=== PATIENT | male | born 1980 | race Caucasian/White ===

== ENCOUNTER 2018-07-17 20:54 | Inpatient (IN) | payer OTHER ==
[~2018-07-17] VITALS: Ht 175.3 cm; Wt 108.9 kg
[2018-07-17] MEDS ORDERED: LIDOCAINE 2%/EPI 1:100,000 20 ML VIAL. IJ ONE (21:15)
[2018-07-17] MEDS ORDERED: MORPHINE SULFATE 10 MG/ML VIAL. IV ONE (21:15)
[2018-07-17] MEDS ORDERED: NEOMY/BACITR/POLYMYXIN OINT PACKET. TP ONE (21:15)
[2018-07-17 21:23] LABS: BASO # 0.1 x10^3/uL (0.0-0.2); BASO % 0 % (0-3); EOS # 0.1 x10^3/uL (0.0-0.7); EOS % 1 % (0-3); HEMATOCRIT 43.2 % (39.0-53.0); HEMOGLOBIN 14.6 g/dL (13.0-17.5); LYMPH % 14 % (24-48); MEAN CORPUSCULAR HEMOGLOBIN 31 pg (25-35); MEAN CORPUSCULAR HGB CONC 34 g/dL (31-37); MEAN CORPUSCULAR VOLUME 91 fL (79-100); MONO # 1.1 x10^3/uL (0.0-1.1); MONO % 8 % (0-9); NEUT # 11.6 x10^3uL (1.8-7.7); NEUT % 78 % (31-73); PLATELET COUNT 263 x10^3/uL (140-400); RED BLOOD COUNT 4.74 x10^6/uL (4.30-5.70); RED CELL DISTRIBUTION WIDTH 14.3 % (11.5-14.5); WHITE BLOOD COUNT 14.9 x10^3/uL (4.0-11.0)
[2018-07-17 21:30] LABS: CREATININE 0.8 mg/dL (0.7-1.3); GFR 109.4; POTASSIUM 3.8 mmol/L (3.5-5.1)
[2018-07-17] MEDS ORDERED: TETRACAINE 0.5% OPHTH SOLUTION 4ML BOTTLE. OD ONE (21:30)
[2018-07-17 21:33] LABS: PROTHROMBIN TIME PATIENT 12.9 SEC (11.7-14.0)
[2018-07-17 21:36] LABS: ALBUMIN 4.1 g/dL (3.4-5.0); ALBUMIN/GLOBULIN RATIO 1.3 (1.0-1.7); TOTAL BILIRUBIN 1.5 mg/dL (0.2-1.0); TOTAL PROTEIN 7.2 g/dL (6.4-8.2)
[2018-07-17] MEDS ORDERED: HYDROmorphone 2 MG/ML VIAL IV ONE ×2 (22:00→22:15)
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
[2018-07-17] MEDS ORDERED: AMOXICILLIN/K CLAV 875/125MG TABLET. PO ONE (22:45)
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
[2018-07-17] MEDS ORDERED: ONDANSETRON PF 4 MG/2 ML VIAL. IV PRN (23:00)
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
[2018-07-18] MEDS ORDERED: HYDR8TAB29 PO (01:18)
[2018-07-18] MEDS ORDERED: NAPR500T8 PO (01:18)
[2018-07-18] MEDS: HYDROmorphone 2 MG/ML VIAL IVP PRN ×2 (01:37→05:42)
[2018-07-18 03:00] VITALS: BP 132/86
[2018-07-18 07:00] VITALS: BP 147/76
[2018-07-18 07:05] LABS: BILIRUBIN,URINE NEGATIVE (NEG); CLARITY,URINE CLEAR; COLOR,URINE YELLOW; NITRITE,URINE NEGATIVE (NEG); PROTEIN,URINE NEGATIVE (NEG-TRACE); UROBILINOGEN,URINE 0.2 mg/dL (0.2 mg/dL)
[2018-07-18 07:09] LABS: HYALINE CASTS, URINE FEW /HPF
[2018-07-18 07:11] LABS: BACTERIA,URINE 0 /HPF (0-FEW); BARBITURATES NEG (NEG); BENZODIAZEPINES POS (NEG); CANNABINOIDS NEG (NEG); COCAINE NEG (NEG); METHADONE NEG (NEG); OPIATES POS (NEG); PHENCYCLIDINE NEG (NEG); RBC,URINE 0 /HPF (0-2); WBC,URINE RARE /HPF (0-4)
[2018-07-18 07:17] LABS: AMPHETAMINE/METHAMPHETAMINE NEG (NEG)
[2018-07-18] MEDS ORDERED: POLYETHYLENE GLYCOL 3350 17 GM PACKET. PO PRN (08:00)
[2018-07-18] MEDS ORDERED: MAGNESIUM HYDROXIDE 2,400 MG/30 ML ORAL.SUSP. PO PRN (08:00)
[2018-07-18] MEDS ORDERED: ONDANSETRON PF 4 MG/2 ML VIAL. IV PRN (08:00)
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
[2018-07-18] MEDS: CELECOXIB 100 MG CAPSULE. PO SCH ×2 (08:43→20:07)
[2018-07-18] MEDS: DOCUSATE SODIUM 100 MG CAPSULE. PO SCH (08:43)
[2018-07-18] MEDS: AMOXICILLIN/K CLAV 500/125MG TABLET. PO SCH ×2 (08:43→20:07)
[2018-07-18] MEDS: oxyCODONE/APAP 5/325 1 TAB TABLET PO PRN ×2 (08:44→12:32)
[2018-07-18] MEDS: HYDROmorphone 4 MG TABLET PO SCH ×3 (09:36→20:07)
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
[2018-07-18 11:00] VITALS: BP 127/82
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
[2018-07-18 14:39] VITALS: BP 149/84
--- NOTE | 2018-07-18 16:30 | NUR ---
Assumed patient care at 1600, agree with prior nursing assessment. Will continue to monitor patient for changes until shift change.
[2018-07-18 19:00] VITALS: BP 148/79
[2018-07-18] MEDS: CHLORHEXIDINE 0.12% 15 ML MOUTHWASH. SWSP SCH (20:06)
[2018-07-18] MEDS: LACTOBACILLUS RHAMNOSUS GG 1 CAPSULE. PO SCH (20:07)
[2018-07-18] MEDS: DICLOFENAC SODIUM 1% TOPICAL GEL 100GM TUBE. TP SCH (20:07)
[2018-07-18 22:57] VITALS: BP 136/82
[2018-07-19] VITALS (7 sets, daily range): BP systolic 111–151; BP diastolic 74–105
[2018-07-19] MEDS: oxyCODONE/APAP 5/325 1 TAB TABLET PO PRN ×3 (01:58→17:48)
[2018-07-19] MEDS: CHLORHEXIDINE 0.12% 15 ML MOUTHWASH. SWSP SCH ×2 (08:14→20:51)
[2018-07-19] MEDS: HYDROmorphone 4 MG TABLET PO SCH ×3 (08:14→20:51)
[2018-07-19] MEDS: CELECOXIB 100 MG CAPSULE. PO SCH ×2 (08:15→20:51)
[2018-07-19] MEDS: AMOXICILLIN/K CLAV 500/125MG TABLET. PO SCH (08:16)
[2018-07-19] MEDS: LACTOBACILLUS RHAMNOSUS GG 1 CAPSULE. PO SCH ×2 (08:16→20:50)
[2018-07-19] MEDS: DOCUSATE SODIUM 100 MG CAPSULE. PO SCH (08:17)
[2018-07-19] MEDS: DICLOFENAC SODIUM 1% TOPICAL GEL 100GM TUBE. TP SCH ×2 (08:17→20:51)
[2018-07-19] MEDS ORDERED: AMOX1TAB10 PO (08:32)
[2018-07-19] MEDS ORDERED: CHLO473M SWSP (08:32)
[2018-07-19] MEDS ORDERED: CELE100C PO (08:32)
--- NOTE | 2018-07-19 08:33 | DISCH ---
DISCHARGE INSTRUCTIONS Condition on Discharge Condition on Discharge: Stable Activity After Discharge Activity Instructions for Disc: Resume previous activity Weight Bearing Status after Di: No restrictions Diet after Discharge Additional Diet Restrictions: soft mechanical diet Contacting the DR. after DC Call your doctor for: If your condition worsens Follow-Up Follow up with: may remove andrea after 7-10 days ELBA MCKENNA MD Jul 19, 2018 08:33
--- NOTE | 2018-07-19 09:03 | NUR ---
IP: Pt is mrsa screen + requiring contact precautions.
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
--- NOTE | 2018-07-19 11:51 | RAD ---
PQRS Compliance Statement: One or more of the following individualized dose reduction techniques were utilized for this examination: 1. Automated exposure control 2. Adjustment of the mA and/or kV according to patient size 3. Use of iterative reconstruction technique CT head without contrast 07/19/2018 11:30 AM INDICATION: Dizziness, concussion COMPARISON: July 17, 2018 TECHNIQUE: Multiple axial CT images of the head were obtained from skull base through the vertex without intravenous contrast. FINDINGS: Head: There is a right temporal scalp hematoma with andrea in place. There is subcutaneous fat stranding involving the right periauricular and right malar soft tissues. Ventricles, sulci and basal cisterns are within normal limits. There is no hydrocephalus. [place]-white matter differentiation is normal. There is no acute intracranial hemorrhage. There is no mass, mass effect or midline shift. Posterior fossa is normal in appearance. Visualized portions of the orbits are normal. Paranasal sinuses are well aerated. Mastoid air cells are well aerated.. IMPRESSION: No acute intracranial hemorrhage. Subcutaneous edema is noted along the right malar soft tissues and right periauricular region. Correlate with any signs and symptoms of cellulitis. Electronically signed by: Michelle Hinojosa MD (07/19/2018 11:48 AM) [id number]
[2018-07-19] MEDS: CLINDAMYCIN 600MG PREMIX 50 ML IV SCH ×2 (13:55→21:40)
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
[2018-07-19] MEDS: THIAMINE 100 MG TABLET. PO SCH (17:47)
[2018-07-19] MEDS: GABAPENTIN 100 MG CAPSULE. PO SCH ×2 (17:48→20:50)
[2018-07-19 19:18] LABS: BASO % 1 % (0-3); EOS # 0.3 x10^3/uL (0.0-0.7); EOS % 4 % (0-3); HEMATOCRIT 40.4 % (39.0-53.0); HEMOGLOBIN 13.6 g/dL (13.0-17.5); LYMPH # 2.6 x10^3/uL (1.0-4.8); LYMPH % 34 % (24-48); MEAN CORPUSCULAR HEMOGLOBIN 31 pg (25-35); MEAN CORPUSCULAR HGB CONC 34 g/dL (31-37); MEAN CORPUSCULAR VOLUME 93 fL (79-100); MONO # 0.9 x10^3/uL (0.0-1.1); MONO % 11 % (0-9); NEUT % 51 % (31-73); PLATELET COUNT 240 x10^3/uL (140-400); RED BLOOD COUNT 4.36 x10^6/uL (4.30-5.70); RED CELL DISTRIBUTION WIDTH 13.9 % (11.5-14.5); WHITE BLOOD COUNT 7.8 x10^3/uL (4.0-11.0)
[2018-07-19 19:32] LABS: ALBUMIN 3.4 g/dL (3.4-5.0); ALBUMIN/GLOBULIN RATIO 1.1 (1.0-1.7); CALCIUM 8.4 mg/dL (8.5-10.1); CREATININE 1.1 mg/dL (0.7-1.3); GFR 75.7; POTASSIUM 4.3 mmol/L (3.5-5.1); TOTAL BILIRUBIN 1.7 mg/dL (0.2-1.0); TOTAL PROTEIN 6.5 g/dL (6.4-8.2)
[2018-07-20 02:53] VITALS: BP 138/87
[2018-07-20] MEDS: CLINDAMYCIN 600MG PREMIX 50 ML IV SCH ×3 (05:36→21:32)
[2018-07-20] MEDS: oxyCODONE/APAP 5/325 1 TAB TABLET PO PRN ×3 (05:42→22:34)
[2018-07-20 07:00] VITALS: BP 131/82
[2018-07-20] MEDS: DICLOFENAC SODIUM 1% TOPICAL GEL 100GM TUBE. TP SCH ×2 (09:00→21:00)
[2018-07-20] MEDS: LACTOBACILLUS RHAMNOSUS GG 1 CAPSULE. PO SCH ×2 (09:00→21:31)
[2018-07-20] MEDS: THIAMINE 100 MG TABLET. PO SCH (10:09)
[2018-07-20] MEDS: DOCUSATE SODIUM 100 MG CAPSULE. PO SCH (10:09)
[2018-07-20] MEDS: GABAPENTIN 100 MG CAPSULE. PO SCH ×3 (10:09→21:31)
[2018-07-20] MEDS: CELECOXIB 100 MG CAPSULE. PO SCH ×2 (10:09→21:28)
[2018-07-20] MEDS: HYDROmorphone 4 MG TABLET PO SCH ×3 (10:10→21:31)
[2018-07-20] MEDS: CHLORHEXIDINE 0.12% 15 ML MOUTHWASH. SWSP SCH ×2 (10:11→21:28)
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
[2018-07-20 11:00] VITALS: BP 145/58
[2018-07-20] MEDS: LIDOCAINE (700MG/PATCH) PATCH. TD SCH (11:30)
[2018-07-20] MEDS: HYDROmorphone 2 MG/ML VIAL IVP PRN (11:59)
[2018-07-20] MEDS ORDERED: GADOBUTROL 10 MMOL/10 ML VIAL IV ONE (12:30)
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
[2018-07-20 15:00] VITALS: BP 114/61
[2018-07-20] MEDS ORDERED: CONTRAST GIVEN. MC PRN ×3 (15:00→15:45)
[2018-07-20] MEDS ORDERED: IOHEXOL 300 MG/ML 100ML VIAL. IV ONE ×2 (15:00)
[2018-07-20] MEDS ORDERED: IOHEXOL 350 MG/ML 100 ML VIAL. IV ONE (15:45)
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
[2018-07-20 19:00] VITALS: BP 144/91
[2018-07-20] MEDS ORDERED: PATCH REMOVAL. MC SCH (21:00)
[2018-07-20 23:00] VITALS: BP 138/82
[2018-07-21 03:00] VITALS: BP 128/72
[2018-07-21] MEDS: oxyCODONE/APAP 5/325 1 TAB TABLET PO PRN ×2 (04:02→10:11)
[2018-07-21] MEDS: CLINDAMYCIN 600MG PREMIX 50 ML IV SCH (06:01)
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
[2018-07-21 07:00] VITALS: BP 164/89
[2018-07-21] MEDS: HYDROmorphone 4 MG TABLET PO SCH (07:39)
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
[2018-07-21] MEDS: CHLORHEXIDINE 0.12% 15 ML MOUTHWASH. SWSP SCH (10:09)
[2018-07-21] MEDS: DOCUSATE SODIUM 100 MG CAPSULE. PO SCH (10:10)
[2018-07-21] MEDS: GABAPENTIN 100 MG CAPSULE. PO SCH (10:10)
[2018-07-21] MEDS: DICLOFENAC SODIUM 1% TOPICAL GEL 100GM TUBE. TP SCH (10:10)
[2018-07-21] MEDS: THIAMINE 100 MG TABLET. PO SCH (10:11)
[2018-07-21] MEDS: LACTOBACILLUS RHAMNOSUS GG 1 CAPSULE. PO SCH (10:11)
[2018-07-21] MEDS: CELECOXIB 100 MG CAPSULE. PO SCH (10:11)
[2018-07-21] MEDS: LIDOCAINE (700MG/PATCH) PATCH. TD SCH (10:12)
[2018-07-21 11:00] VITALS: BP 130/75
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
[2018-07-22 12:19] LABS: HCV ULTRA QUANT PCR 867000 IU/mL (.)
== END 2018-07-21 14:03 | disposition home or self-care (01) | DRG 154 ==
LOC: ER 20:54 → EEVIPCON 20:54 → 5 NORTH 23:00
PROVIDERS: ADMIT Internal Medicine; ATTEND Internal Medicine
DX: S02.2XXA Fracture of nasal bones, initial encounter for closed fracture (principal); G92 Toxic encephalopathy; S01.01XA Laceration without foreign body of scalp, initial encounter; S02.5XXA Fracture of tooth (traumatic), initial encounter for closed fracture; I10 Essential (primary) hypertension; F10.129 Alcohol abuse with intoxication, unspecified; E66.9 Obesity, unspecified; J34.2 Deviated nasal septum; H11.31 Conjunctival hemorrhage, right eye; Y90.2 Blood alcohol level of 40-59 mg/100 ml; F32.9 Major depressive disorder, single episode, unspecified; F41.9 Anxiety disorder, unspecified; Y04.0XXA Assault by unarmed brawl or fight, initial encounter; Y93.89 Activity, other specified; Y92.149 Unspecified place in prison as the place of occurrence of the external cause; Y99.8 Other external cause status; Z68.35 Body mass index [BMI] 35.0-35.9, adult
CPT/HCPCS: 36415; 70450; 70486; 70496; 70498; 70544; 70547; 70553; 71045; 71100; 72125; 73130; 80053; 80307; 81001; 85025; 85610; 85730; 86803; 87521; 87641; 96374; 96375; 96376; A9585; G0480; J1170; J2060; J2270; J3490; Q9967; 99285-25